=== PATIENT | female | born 1985 | race Caucasian/White ===

== ENCOUNTER 2021-09-02 10:27 | Emergency (ER) | payer OTHER ==
[~2021-09-02 10:27] MED LIST: BENTYL 10MG CAP10 MG PO; BUSPAR 10MG10 MG PO; CATAPRES 0.1MG0.1 MG PO; EFFEXOR XR150 MG PO; ETODOLAC200 MG PO; GLUCOPHAGE XR500 MG PO; GLUCOPHAGE500 MG PO; JANUVIA100 MG PO; LANTUS100 UNIT/1 SQ; NORCO 5-325 TA1 EACH PO; OMNICEF 300 MG300 MG PO; PROTONIX40 MG PO; PYRIDIUM200 MG PO; VIIBRYD20 MG PO; VISTARIL25 MG PO; VRAYLAR PO; WELLBUTRIN SR150 M1 PO; ZOFRAN ODT4 MG PO
== END 2021-09-02 12:52 | disposition home or self-care (01) ==
LOC: ER1 10:27
DX: H54.62 Unqualified visual loss, left eye, normal vision right eye (principal); E11.9 Type 2 diabetes mellitus without complications; Z88.2 Allergy status to sulfonamides; Z88.1 Allergy status to other antibiotic agents
CPT/HCPCS: 99283